=== PATIENT | female | born 1990 | race African-American/Black ===

== ENCOUNTER 2017-12-08 09:24 | Emergency (ER) | payer SELFPAY ==
[2017-12-08 09:30] VITALS: BP 112/67
--- NOTE | 2017-12-08 09:47 | ER Document Report ---
HPI - HPI Patient complains to provider of: toothache Onset: Last week Onset/Duration: Gradual Pain Level: 5 Context: 27-year-old female complaining of throbbing tooth pain left lower where her wisdom tooth is partially erupted. Her mother gave her to amoxicillin. Motrin and Tylenol are not relieving the pain. She is covered under a blanket that she brought with her and crying due to pain. Associated Symptoms: None Exacerbated by: Other - hewing Relieved by: Denies Similar symptoms previously: No Recently seen / treated by doctor: No - ROS ROS below otherwise negative: Yes Systems Reviewed and Negative: Yes All other systems reviewed and negative - REPRODUCTIVE Reproductive: DENIES: : Past Medical History - General Information source: Patient - Social History Smoking Status: Unknown if Ever Smoked Frequency of alcohol use: None Drug Abuse: None Lives with: Family Family History: Reviewed & Not Pertinent Patient has suicidal ideation: No Patient has homicidal ideation: No Neurological Medical History: Reports: Hx Migraine Renal/ Medical History: Denies: Hx Peritoneal Dialysis Past Surgical History: Reports: Hx Herniorrhaphy - Immunizations Hx Diphtheria, Pertussis, Tetanus Vaccination: No Vertical Provider Document - CONSTITUTIONAL Agree With Documented VS: Yes Exam Limitations: No Limitations General Appearance: No Apparent Distress - INFECTION CONTROL TRAVEL OUTSIDE OF THE [place] IN LAST 30 DAYS: No - HEENT HEENT: Normocephalic Notes: Personal erupted third molar lower left with some gingivitis there is no abscess palpated. - NECK Neck: Supple. negative: Lymphadenopathy-Left, Lymphadenopathy-Right - RESPIRATORY Respiratory: Breath Sounds Normal, No Respiratory Distress - CARDIOVASCULAR Cardiovascular: Regular Rate, Regular Rhythm - NEURO Level of Consciousness: Awake, Alert - DERM Integumentary: No Rash Course - Re-evaluation Re-evalutation: 12/08/17 I was told that the patient left without her discharge instructions or prescriptions because she stated that Motrin and Tylenol would not work and that I told her I would give her Vicodin, which I did not discuss or offer her. - Vital Signs Vital signs: Temp Pulse Resp BP Pulse Ox 98.6 F 61 18 112/67 100 12/08/17 09:28 12/08/17 09:28 12/08/17 09:28 12/08/17 09:28 12/08/17 09:28 Discharge - Discharge Clinical Impression: Pain, dental Condition: Good Disposition: HOME, SELF-CARE Instructions: Acetaminophen, [facility], Dentist, Dental Infection or Abscess ([facility]), Ibuprofen (General) ([facility]), Penicillin V K ([facility]), Toothache ([facility]) Additional Instructions: Warm compress Penicillin Tylenol Motrin Lidocaine to numb the area See the dentist Prescriptions: Ibuprofen [Motrin 600 mg Tablet] 600 mg PO Q8HP PRN #30 tablet PRN Reason: Penicillin V Potassium [Penicillin Vk 500 mg Tablet] 500 mg PO QID #40 tablet Forms: Return to Work
[2017-12-08] MEDS ORDERED: LIDOCAINE 2% VISCOUS SOLN 20 ML UDCUP PO ONE (09:51)
[2017-12-08] MEDS ORDERED: IBUPROFEN 600 MG TABLET PO ONE (09:51)
[2017-12-08] MEDS ORDERED: PENICILLIN V POTASSIUM 500 MG TABLET PO ONE (09:51)
[2017-12-08] MEDS ORDERED: ACETAMINOPHEN 325 MG TABLET PO ONE (09:51)
[2017-12-08] MEDS ORDERED: ONDANSETRON 4 MG TAB.RAPDIS PO ONE (09:54)
== END 2017-12-08 10:39 | disposition home or self-care (01) ==
LOC: ER 09:24
DX: K00.6 Disturbances in tooth eruption (principal); K08.89 Other specified disorders of teeth and supporting structures
CPT/HCPCS: 99282

== ENCOUNTER 2017-12-08 10:55 | Emergency (ER) | payer SELFPAY ==
[2017-12-08 11:02] VITALS: BP 117/76
--- NOTE | 2017-12-08 11:11 | ER Document Report ---
HPI - HPI Patient complains to provider of: Patient checked back and due to tooth pain Onset: Last week Pain Level: 5 Context: 27-year-old female checked back in because of the persistent lower left third molar pain. She stated she took some Tylenol out in the waiting room to prove that it would not help. The emergency ripening room hand is talking to her at this time. She did write on her paper that she had episodes of diarrhea for several days. Denies abdominal pain nausea or vomiting. No fever or chills. Associated Symptoms: None Exacerbated by: Denies Relieved by: Denies Similar symptoms previously: Yes Recently seen / treated by doctor: Yes - ROS ROS below otherwise negative: Yes Systems Reviewed and Negative: Yes All other systems reviewed and negative - REPRODUCTIVE Reproductive: DENIES: : Past Medical History - General Information source: Patient - Social History Smoking Status: Unknown if Ever Smoked Frequency of alcohol use: None Drug Abuse: None Lives with: Family Family History: Reviewed & Not Pertinent - Medical History Medical History: Negative Neurological Medical History: Reports: Hx Migraine Renal/ Medical History: Denies: Hx Peritoneal Dialysis Past Surgical History: Reports: Hx Herniorrhaphy - Immunizations Hx Diphtheria, Pertussis, Tetanus Vaccination: No Vertical Provider Document - CONSTITUTIONAL Agree With Documented VS: Yes Exam Limitations: No Limitations General Appearance: No Apparent Distress - INFECTION CONTROL TRAVEL OUTSIDE OF THE [place] IN LAST 30 DAYS: No - HEENT HEENT: Normocephalic Notes: Partially erupted third left lower molar with gingivitis but no abscess. - NECK Neck: Supple - RESPIRATORY Respiratory: Breath Sounds Normal, No Respiratory Distress - CARDIOVASCULAR Cardiovascular: Regular Rate, Regular Rhythm - GI/ABDOMEN Gastrointestinal: Abdomen Soft, Abdomen Non-Tender, No Organomegaly - BACK Back: Normal Inspection. negative: CVA Tenderness-Right, CVA Tenderness-Left - NEURO Level of Consciousness: Alert - DERM Integumentary: No Rash Course - Re-evaluation Re-evalutation: 12/08/17 20:52 The emergency ripening room hand Stacia Alonso nurse practitioner recommended that I give her a Tessalon Perle to numb the area and a Toradol shot which she discussed with the patient. - Vital Signs Vital signs: Temp Pulse Resp BP Pulse Ox 99.1 F 73 20 117/76 100 12/08/17 11:00 12/08/17 11:00 12/08/17 11:00 12/08/17 11:00 12/08/17 11:00 Discharge - Discharge Clinical Impression: Dental pain Condition: Good Disposition: HOME, SELF-CARE Instructions: Acetaminophen, Dentist, Dental Infection or Abscess ([facility]), Ibuprofen (General) ([facility]), Penicillin V K ([facility]), Toothache ([facility]), Toradol Injection ([facility]) Additional Instructions: Warm compress Tylenol up to 4000 mg per day Motrin 600 mg 3 times a day as needed for pain Lidocaine to numb the area You were given an injection of 60 mg of Toradol which is the same as oral Motrin , they are both anti-inflammatory medication See the dentist as soon as possible to get this would not tooth removed Prescriptions: Ibuprofen [Motrin 600 mg Tablet] 600 mg PO Q8HP PRN #30 tablet PRN Reason: Benzonatate [Tessalon Perles 100 mg Capsule] 100 mg PO ASDIR PRN #10 capsule PRN Reason: Penicillin V Potassium [Penicillin Vk 500 mg Tablet] 500 mg PO QID #40 tablet Forms: Return to Work
[2017-12-08] MEDS ORDERED: BENZONATATE 100 MG CAPSULE PO ONE (11:12)
[2017-12-08] MEDS ORDERED: KETOROLAC TROMETHAMINE 60 MG/2 ML SDV IM ONE (11:25)
[2017-12-08] MEDS ORDERED: PENICILLIN V POTASSIUM 500 MG TABLET PO ONE (11:26)
== END 2017-12-08 11:47 | disposition home or self-care (01) ==
LOC: ER 10:55
DX: K00.6 Disturbances in tooth eruption (principal); K05.10 Chronic gingivitis, plaque induced; K08.89 Other specified disorders of teeth and supporting structures; R19.7 Diarrhea, unspecified
CPT/HCPCS: 99282; 96372; J1885